=== PATIENT | male | born 1995 | race Caucasian/White ===

== ENCOUNTER 2016-12-25 23:50 | Emergency (ER) | payer BC ==
[~2016-12-25] VITALS: Ht 185.4 cm; Wt 60.1 kg
[~2016-12-25 23:50] MED LIST: APRI0.372 PO; BUDE3CAP5 PO; GROWTH HORMONE; LOMO PO; NEXI20CA PO; SULF-154 PO; TAB-TAB PO; ZOFR4TAB3 PO; ZOFR4TAB3 SL
[2016-12-25 23:58] VITALS: BP 107/80; PULSE 84; RESP 12; TEMP 97.8; O2SAT 100
[2016-12-26 00:20] VITALS: RESP 18; O2SAT 99
--- NOTE | 2016-12-26 00:29 | PD ---
HPI Chief Complaint: Fall Time Seen by Provider: 00:22 Travel History International Travel<30 days: No Contact w/Intl Traveler<30days: No Traveled to known affect area: No History of Present Illness HPI 21-year-old male presents to the emergency department by private transportation the care of his friend for evaluation of syncopal episode after smoking marijuana. Patient has history of Crohn's disease and takes humerus every 2 weeks otherwise takes no medications on a regular basis. Patient does smoke marijuana frequently and states he only purchases his marijuana from trusted individual. Patient states he had just finished smoking marijuana, began walking to his car across a flat concrete surface, and the next thing he recalls is waking up on the ground with everyone around him. Friend at bedside states that he just fell forward. Friend reports that he may have had some brief seizure-like activity however awakened without postictal state. No tongue trauma no bladder or bowel incontinence. Patient is able to get up off the ground on his own. Patient noted abrasions to the left forehead. Patient denies any headache neck pain chest pain abdominal pain extremity pain. Patient has no upper or lower extremity numbness tingling or weakness. Patient denies other substance ingestion. PFSH Past Medical History Narrative Medical Crohn's disease, no surgery; marijuana use; nursing notes reviewed Diminished Hearing: No Gastrointestinal Disorders: Yes (CROHN'S DISEASE) Immunizations Current: Yes Past Surgical History Tonsillectomy: Yes Tympanostomy Tube: Yes Social History Alcohol Use: No Tobacco Use: No Substance Use: No Allergies-Medications (Allergen,Severity, Reaction): Coded Allergies: No Known Allergies (Verified , 12/26/16) Reported Meds & Prescriptions Reported Meds & Active Scripts Active Zofran Odt (Ondansetron Odt) 4 Mg Tab 4 Mg SL Q6HR PRN Reported Humira 2-Pack Inj (Adalimumab 2-Pack Inj) 10 Mg/0.2 Ml Syr 10 Mg SQ Q14D Narrative Medication Humira Review of Systems Except as stated in HPI: all other systems reviewed are Neg General / Constitutional: No: Fever, Chills HENT: No: Headaches, Congestion, Neck Stiffness, Neck Pain Cardiovascular: No: Chest Pain or Discomfort Respiratory: No: Cough, Shortness of Breath Gastrointestinal: No: Nausea, Vomiting, Abdominal Pain Genitourinary: No: Flank Pain Musculoskeletal: No: Myalgias, Arthralgias Skin: Positive Rash (abrasion to left forehead) Neurologic: Positive: Syncope, No: Weakness, Dizziness, Focal Abnormalities, Coordination Problem, Headache, Change in Mentation, Slurred Speech, Paresthesia , Incontinence, Seizures, Sensory Disturbance Psychiatric: No: Anxiety Hematologic/Lymphatic: No: Easy Bruising Physical Exam Narrative GENERAL: Well-developed well-nourished male in no acute distress no respiratory distress; GCS 15 SKIN: Warm and dry. Superficial abrasion to the left forehead. HEAD: Atraumatic. Normocephalic. Scalp without palpable soft tissue swelling hematoma abrasion or laceration also no bony step-off EYES: Pupils equal and round. Extraocular muscles intact. No scleral icterus. No injection or drainage. ENT: No nasal bleeding or discharge. Mucous membranes pink and moist. Airway is patent. No hemotympanum bilaterally. NECK: Trachea midline. No JVD. No midline tenderness to direct palpation along the cervical spine no bony step-off. CARDIOVASCULAR: Regular rate and rhythm. Chest wall: Nontender to palpation. RESPIRATORY: No accessory muscle use. Clear to auscultation. Breath sounds equal bilaterally. GASTROINTESTINAL: Abdomen soft, non-tender, nondistended. Hepatic and splenic margins not palpable. MUSCULOSKELETAL: Extremities without clubbing, cyanosis, or edema. No obvious deformities. NEUROLOGICAL: Awake and alert. GCS 15. No obvious cranial nerve deficits. Motor grossly within normal limits. Five out of 5 muscle strength in the arms and legs. Normal speech. PSYCHIATRIC: Appropriate mood and affect; insight and judgment normal. Data Data Last Documented VS Vital Signs Date Time Temp Pulse Resp B/P Pulse Ox O2 Delivery O2 Flow Rate FiO2 12/26/16 02:39 84 18 110/78 99 12/26/16 00:20 Room Air 12/25/16 23:[address] Brain W/O Iv Contrast(Rout) (12/26/16 ) Electrocardiogram (12/26/16 ) Blood Glucose (12/26/16 00:22) Basic Metabolic Panel (Bmp) (12/26/16 00:55) Complete Blood Count With Diff (12/26/16 00:55) Magnesium (Mg) (12/26/16 00:55) Troponin I (12/26/16 00:55) Ecg Monitoring (12/26/16 00:55) Iv Access Insert/Monitor (12/26/16 00:55) Oximetry (12/26/16 00:55) Sodium Chloride 0.9% Flush (Ns Flush) (12/26/16 01:00) D-Dimer (12/26/16 00:55) Sodium Chlor 0.9% 1000 Ml Inj (Ns 1000 M (12/26/16 01:00) Labs Laboratory Tests Test 12/26/16 01:05 White Blood Count 12.0 TH/MM3 Red Blood Count 4.86 MIL/MM3 Hemoglobin 14.7 GM/DL Hematocrit 42.8 % Mean Corpuscular Volume 88.0 FL Mean Corpuscular Hemoglobin 30.3 PG Mean Corpuscular Hemoglobin 34.5 % Concent Red Cell Distribution Width 11.8 % Platelet Count 201 TH/MM3 Mean Platelet Volume 9.2 FL Neutrophils (%) (Auto) 81.3 % Lymphocytes (%) (Auto) 9.4 % Monocytes (%) (Auto) 8.4 % Eosinophils (%) (Auto) 0.5 % Basophils (%) (Auto) 0.4 % Neutrophils # (Auto) 9.8 TH/MM3 Lymphocytes # (Auto) 1.1 TH/MM3 Monocytes # (Auto) 1.0 TH/MM3 Eosinophils # (Auto) 0.1 TH/MM3 Basophils # (Auto) 0.0 TH/MM3 CBC Comment DIFF FINAL Differential Comment D-Dimer Quantitative (PE/DVT) 0.47 MG/L FEU Sodium Level 143 MEQ/L Potassium Level 3.6 MEQ/L Chloride Level 107 MEQ/L Carbon Dioxide Level 30.5 MEQ/L Anion Gap 6 MEQ/L Blood Urea Nitrogen 19 MG/DL Creatinine 1.00 MG/DL Estimat Glomerular Filtration 93 ML/MIN Rate Random Glucose 82 MG/DL Calcium Level 9.3 MG/DL Magnesium Level 2.4 MG/DL Troponin I LESS THAN 0.02 NG/ML MDM Medical Decision Making Medical Screen Exam Complete: Yes Emergency Medical Condition: Yes Medical Record Reviewed: Yes Differential Diagnosis Syncope, arrhythmia, electronic disturbance, polysubstance ingestion, seizure, TIA, ICH, CHI, contusion Narrative Course Bedside Accu-Chek 1:15; plan CT brain noncontrast basic labs EKG and urine drug screen Patient agreeable to CT brain noncontrast Accu-Chek and EKG patient refuses drug screen and does not want lab work performed. Diagnosis Primary Impression: Closed head injury Qualified Code: S09.90XA - Closed head injury, initial encounter Additional Impressions: History of marijuana use Concussion Qualified Code: S06.0X1A - Concussion, with LOC of 30 min or less, initial encounter Referrals: Primary Care Physician 3 days Patient Instructions: General Instructions Additional Instructions: Takes Zofran as needed for nausea and/or vomiting Increase fluid hydration Take acetaminophen/Tylenol as needed for fever 100.4F or greater Chief abrasion site clean and dry Follow-up with primary care provider call office on Wednesday to schedule follow- up appointment Return to the emergency department for any concerns or change in condition Follow head injury precautions 24 hours Med/Other Pt SpecificInfo: Prescription(s) given Scripts Ondansetron Odt (Zofran Odt)4 Mg Tab4 Mg SL Q6HR PRN (Nausea/Vomiting) #10 TAB Ref 0 Prov:Nilam Tompkins MD 12/26/16 Disposition: DISCHARGE HOME Condition: Stable Nilam Tompkins MD December 26, 2016 00:29
--- NOTE | 2016-12-26 00:47 | RADHPO ---
EXAM DATE/TIME: 12/26/2016 00:26 [facility] COMPARISON: No previous studies available for comparison. INDICATIONS : Syncopal episode. Contusion to forehead. RADIATION DOSE: 66.63 CTDIvol (mGy) MEDICAL HISTORY : None SURGICAL HISTORY : None. ENCOUNTER: Initial ACUITY: 1 day PAIN SCALE: 6/10 LOCATION: cranial TECHNIQUE: Multiple contiguous axial images were obtained of the head. Using automated exposure control and adj ustment of the mA and/or kV according to patient size, radiation dose was kept as low as reasonably a chievable to obtain optimal diagnostic quality images. FINDINGS: CEREBRUM: The ventricles are normal for age. No evidence of midline shift, mass lesion, hemorrhage or acute in farction. No extra-axial fluid collections are seen. POSTERIOR FOSSA: The cerebellum and brainstem are intact. The 4th ventricle is midline. The cerebellopontine angle i s unremarkable. EXTRACRANIAL: The visualized portion of the orbits is intact. SKULL: The calvaria is intact. No evidence of skull fracture. CONCLUSION: Normal examination. Jb Valdivia MD on December 26, 2016 at 0:46 Board Certified Radiologist. This report was verified electronically.
[2016-12-26] MEDS ORDERED: SODIUM CHLOR 0.9% 1000 ML INJ 1,000 ML IV ONE (01:00)
[2016-12-26] MEDS ORDERED: SODIUM CHLORIDE 0.9% FLUSH 10 ML FLUSH IVF PRN (01:00)
[2016-12-26 01:25] LABS: AUTOMATED NEUTROPHIL # 9.8 TH/MM3 (1.8-7.7); BASOPHIL % 0.4 % (0.0-2.0); CHLORIDE 107 MEQ/L (98-107); EOSINOPHIL # 0.1 TH/MM3 (0-0.4); EOSINOPHIL % 0.5 % (0.0-4.0); HEMATOCRIT 42.8 % (39.0-51.0); HEMO FLAGS DIFF FINAL; LYMPH % 9.4 % (9.0-44.0); LYMPHOCYTE # 1.1 TH/MM3 (1.0-4.8); MEAN CORPUSCULAR HEMOGLOBIN 30.3 PG (27.0-34.0); MEAN CORPUSCULAR HGB CONC 34.5 % (32.0-36.0); MONO % 8.4 % (0.0-8.0); NEUT % 81.3 % (16.0-70.0); PLATELET COUNT 201 TH/MM3 (150-450); POTASSIUM 3.6 MEQ/L (3.5-5.1); RED BLOOD COUNT 4.86 MIL/MM3 (4.50-5.90); RED CELL DISTRIBUTION WIDTH 11.8 % (11.6-17.2); SODIUM (NA) 143 MEQ/L (136-145)
[2016-12-26 01:28] LABS: ANION GAP 6 MEQ/L (5-15); BICARBONATE 30.5 MEQ/L (21.0-32.0); BLOOD UREA NITROGEN 19 MG/DL (7-18); MAGNESIUM 2.4 MG/DL (1.5-2.5)
[2016-12-26 01:33] LABS: GLOMERULAR FILTRATION RATE 93 ML/MIN (>89)
[2016-12-26] MEDS ORDERED: ADAL1INJ SQ (01:45)
[2016-12-26] MEDS ORDERED: ZOFR4TAB3 SL (02:28)
[2016-12-26 02:39] VITALS: BP 110/78
--- NOTE | 2016-12-26 16:11 | EKG ---
Date Performed: 12/26/2016 Time Performed: 00:48:30 PTAGE: 21 years EKG: Incomplete Right Bundle Branch Block Otherwise within normal limits Since PREVIOUS TRACING 06/22/2006, incomplete right bundle branch block is new, otherwise no s ignificant change. PREVIOUS TRACIN06/22/2006 14.40 DOCTOR: Byron Shipley Interpretating Date/Time 12/26/2016 16:10:36
== END 2016-12-26 02:40 | disposition home or self-care (01) ==
LOC: PHED 23:50
DX: S06.0X0A Concussion without loss of consciousness, initial encounter (principal); F12.10 Cannabis abuse, uncomplicated; R21 Rash and other nonspecific skin eruption; K50.90 Crohn's disease, unspecified, without complications; W18.30XA Fall on same level, unspecified, initial encounter
CPT/HCPCS: 70450; 80048; 83735; 84484; 85025; 85379; 93005; 96360; 99285; J7030

== ENCOUNTER 2017-02-12 19:03 | Observation (INO) | payer BC ==
[~2017-02-12] VITALS: Ht 185.4 cm; Wt 59.8 kg
[~2017-02-12 19:03] MED LIST changes: +ADAL1INJ SQ; -APRI0.372 PO; -BUDE3CAP5 PO; -GROWTH HORMONE; -LOMO PO; -NEXI20CA PO; -SULF-154 PO; -TAB-TAB PO; -ZOFR4TAB3 PO
[2017-02-12 19:32] VITALS: BP 99/74; PULSE 86; RESP 18; TEMP 98.2; O2SAT 99
[2017-02-12 19:50] VITALS: BP_SYST 111; BP_SYST 114; BP_SYST 131; BP_DIAS 70; BP_DIAS 75; BP_DIAS 77; RESP 16
[2017-02-12 19:52] VITALS: BP 111/70; PULSE 86; RESP 16; O2SAT 100
[2017-02-12] MEDS ORDERED: SODIUM CHLOR 0.9% 1000 ML INJ 1,000 ML IV ONE (20:25)
[2017-02-12] MEDS ORDERED: SODIUM CHLORIDE 0.9% FLUSH 10 ML FLUSH IVF PRN ×2 (20:30→22:00)
--- NOTE | 2017-02-12 20:40 | PD ---
HPI Chief Complaint: Syncope/Near-Syncope Time Seen by Provider: 20:25 Travel History International Travel<30 days: No Contact w/Intl Traveler<30days: No Traveled to known affect area: No History of Present Illness HPI 21-year-old male presents to the emergency department by private transportation for evaluation of near syncopal episode just prior to arrival to the emergency department. 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 Patient states he was able to get to the cooler at his place of business and sent and a cool environment and while talking on the phone with his mother he states he felt briefly he had some near loss of consciousness but does not recall being completely unconscious and did not fall to the floor sustaining any injury. Patient states this is the second episode in a one-month timeframe of a syncopal episode with rapid heartbeat; and reports this is the third episode in 6 months of a syncopal episode. Patient states that he has been seen in the emergency department for this the last time She fell and hit his head and had a concussion and had been smoking marijuana just prior to that episode. Patient denies any substance use at this time states his only medication is humerus for history of Crohn's disease. Patient's been having no abdominal pain no bloody stool no vomiting no fever or chills and denies any symptoms at this time. Patient denies any family history of rhythm disturbance early onset cardiac disease or sudden except for his maternal grandfather who has some type of heart rhythm disturbance and has developed within the past few years. Mother and father are both in good health as are his siblings. Patient did not follow-up with his primary care provider after being seen in the emergency department as he felt everything had been evaluated at that time and did not know he was supposed to follow-up as an outpatient. Patient denies any other concerns or complaints. Patient is unable to identify exacerbating or alleviating factors. PFSH Past Medical History Narrative Medical Crohn's disease, tonsillectomy tympanostomy; denies substance use alcohol use or tobacco use; family history maternal grandfather question rhythm disturbance ; nursing notes reviewed Diminished Hearing: No Gastrointestinal Disorders: Yes (CROHN'S DISEASE) Immunizations Current: Yes Past Surgical History Tonsillectomy: Yes Tympanostomy Tube: Yes Social History Alcohol Use: No Tobacco Use: No Substance Use: No Allergies-Medications (Allergen,Severity, Reaction): Coded Allergies: No Known Allergies (Verified , 02/12/17) Reported Meds & Prescriptions Reported Meds & Active Scripts Active Reported Humira 2-Pack Inj (Adalimumab 2-Pack Inj) 10 Mg/0.2 Ml Syr 10 Mg SQ Q14D Review of Systems Except as stated in HPI: all other systems reviewed are Neg General / Constitutional: No: Fever, Chills Eyes: No: Visual changes HENT: Positive: Lightheadedness, No: Headaches, Vertigo, Congestion, Nosebleed , Neck Pain Cardiovascular: Positive: Palpitations, Tachycardia, Diaphoresis, Syncope ( near syncope), No: Chest Pain or Discomfort, Dyspnea on exertion, Varicosities , Edema Respiratory: No: Cough, Shortness of Breath, Wheezing, Hemoptysis, Pleuritic Pain Gastrointestinal: Positive: Nausea, No: Vomiting, Diarrhea, Abdominal Pain, Hematemesis, Hematochezia, Changes in Bowel Habits Genitourinary: No: Urgency, Frequency, Dysuria, Flank Pain Musculoskeletal: No: Myalgias, Arthralgias Skin: No Rash Neurologic: Positive: Weakness, Dizziness, Syncope (near), No: Focal Abnormalities, Coordination Problem, Ataxia, Headache, Change in Mentation, Slurred Speech, Incontinence, Seizures, Sensory Disturbance Psychiatric: No: Anxiety Endocrine: No: Heat Intolerance Hematologic/Lymphatic: No: Easy Bruising Physical Exam Narrative GENERAL: Well-developed well-nourished male in no acute distress no respiratory distress; GCS 15 SKIN: Warm and dry. HEAD: Atraumatic. Normocephalic. EYES: Pupils equal and round. Extraocular muscles intact No scleral icterus. No injection or drainage. ENT: No nasal bleeding or discharge. Mucous membranes pink and moist. Airway is patent. NECK: Trachea midline. No JVD. Supple no meningismus no nuchal rigidity no thyromegaly. CARDIOVASCULAR: Regular rate and rhythm. No murmur rub or gallop. RESPIRATORY: No accessory muscle use. Clear to auscultation. Breath sounds equal bilaterally. GASTROINTESTINAL: Abdomen soft, non-tender, nondistended. Hepatic and splenic margins not palpable. MUSCULOSKELETAL: Extremities without clubbing, cyanosis, or edema. No obvious deformities. NEUROLOGICAL: Awake and alert. No obvious cranial nerve deficits. Motor grossly within normal limits. Five out of 5 muscle strength in the arms and legs. No limb ataxia. DTRs 2+ and symmetric bilaterally. No pronator drift. Sensory exam intact. Normal speech. PSYCHIATRIC: Appropriate mood and affect; insight and judgment normal. Data Data Last Documented VS Vital Signs Date Time Temp Pulse Resp B/P Pulse Ox O2 Delivery O2 Flow Rate FiO2 02/12/17 21:52 85 16 112/72 99 Room Air 02/12/17 19:32 98.2 Orders Electrocardiogram (02/12/17 20:25) Complete Blood Count With Diff (02/12/17 20:25) Comprehensive Metabolic Panel (02/12/17 20:25) Magnesium (Mg) (02/12/17 20:25) Ckmb (Isoenzyme) Profile (02/12/17 20:25) Troponin I (02/12/17 20:25) Act Partial Throm Time (Ptt) (02/12/17 20:25) Prothrombin Time / Inr (Pt) (02/12/17 20:25) Urinalysis - C+S If Indicated (02/12/17 20:25) Chest, Single Ap (02/12/17 20:25) Ecg Monitoring (02/12/17 20:25) Iv Access Insert/Monitor (02/12/17 20:25) Oximetry (02/12/17 20:25) Sodium Chloride 0.9% Flush (Ns Flush) (02/12/17 20:30) Sodium Chlor 0.9% 1000 Ml Inj (Ns 1000 M (02/12/17 20:25) Orthostatic Vital Signs (02/12/17 20:25) D-Dimer (02/12/17 20:25) Thyroid Stimulating Hormone (02/12/17 20:25) Drug Screen, Random Urine (02/12/17 20:25) CKMB (02/12/17 20:45) CKMB% (02/12/17 20:45) Admit Order (Ed Use Only) (02/12/17 ) ^ Saline Lock (02/12/17 21:54) Resp Oxygen Joshua C Titrat 1-4 L (02/12/17 ) Notify Dr: Other (02/12/17 21:54) Sodium Chloride 0.9% Flush (Ns Flush) (02/13/17 09:00) Sodium Chloride 0.9% Flush (Ns Flush) (02/12/17 22:00) Labs Laboratory Tests Test 02/12/17 02/12/17 20:40 20:45 Urine Opiates Screen NEG Urine Barbiturates Screen NEG Urine Amphetamines Screen NEG Urine Benzodiazepines Screen NEG Urine Cocaine Screen NEG Urine Cannabinoids Screen NEG White Blood Count 8.8 TH/MM3 Red Blood Count 4.86 MIL/MM3 Hemoglobin 14.8 GM/DL Hematocrit 42.5 % Mean Corpuscular Volume 87.4 FL Mean Corpuscular Hemoglobin 30.5 PG Mean Corpuscular Hemoglobin 35.0 % Concent Red Cell Distribution Width 11.6 % Platelet Count 176 TH/MM3 Mean Platelet Volume 9.0 FL Neutrophils (%) (Auto) 68.4 % Lymphocytes (%) (Auto) 21.7 % Monocytes (%) (Auto) 8.5 % Eosinophils (%) (Auto) 0.7 % Basophils (%) (Auto) 0.7 % Neutrophils # (Auto) 6.0 TH/MM3 Lymphocytes # (Auto) 1.9 TH/MM3 Monocytes # (Auto) 0.7 TH/MM3 Eosinophils # (Auto) 0.1 TH/MM3 Basophils # (Auto) 0.1 TH/MM3 CBC Comment DIFF FINAL Differential Comment Prothrombin Time 11.8 SEC Prothromb Time International 1.1 RATIO Ratio Activated Partial 28.5 SEC Thromboplast Time D-Dimer Quantitative (PE/DVT) 0.19 MG/L FEU Urine Color YELLOW Urine Turbidity SLIGHT Urine pH 6.5 Urine Specific [place] 1.026 Urine Protein NEG mg/dL Urine Glucose (UA) NEG mg/dL Urine Ketones NEG mg/dL Urine Occult Blood NEG Urine Nitrite NEG Urine Bilirubin NEG Urine Leukocyte Esterase NEG Urine RBC 0-2 /hpf Urine WBC 0-2 /hpf Urine Squamous Epithelial 0-5 /hpf Cells Urine Amorphous Sediment MOD Urine Bacteria NONE /hpf Microscopic Urinalysis Comment CULT NOT INDICATED Sodium Level 141 MEQ/L Potassium Level 3.7 MEQ/L Chloride Level 105 MEQ/L Carbon Dioxide Level 30.1 MEQ/L Anion Gap 6 MEQ/L Blood Urea Nitrogen 18 MG/DL Creatinine 0.90 MG/DL Estimat Glomerular Filtration 106 ML/MIN Rate Random Glucose 92 MG/DL Calcium Level 9.5 MG/DL Magnesium Level 2.3 MG/DL Total Bilirubin 1.0 MG/DL Aspartate Amino Transf 16 U/L (AST/SGOT) Alanine Aminotransferase 18 U/L (ALT/SGPT) Alkaline Phosphatase 87 U/L Total Creatine Kinase 128 U/L Creatine Kinase MB 1.1 NG/ML Troponin I 0.02 NG/ML Total Protein 7.5 GM/DL Albumin 4.4 GM/DL Thyroid Stimulating Hormone 0.488 uIU/ML 3rd Gen [facility] Medical Decision Making Medical Screen Exam Complete: Yes Emergency Medical Condition: Yes Medical Record Reviewed: Yes Interpretation(s) EKG normal sinus rhythm rate 76) ventricular conduction delay incomplete right bundle branch block prominent T waves and ST segment elevation or injury pattern change no ectopy noted Last Impressions Chest X-Ray 02/12/172024 Signed Impressions: Service Date/Time: Sunday, February 12, 2017 20:48 - CONCLUSION: No evidence of acute cardiopulmonary disease. Kulwinder Cheung MD CBC & BMP Diagram 02/12/17 20:45 trop I: less than 0.02, not elevated uds: negative tsh: 0.488, wnl Differential Diagnosis Syncope, arrhythmia, electrolyte disturbance, anemia, seizure, TIA, PE, substance ingestion Narrative Course Lab values are found to be in normal range; no evidence for electrolyte disturbance or hyper or hypokalemia; TSH be in normal limits; urine drug screen negative; no evidence for anemia; d-dimer is not elevated at 0.19; patient with mild orthostatic measurements changes however asymptomatic; patient has been given fluid bolus. Patient does not have primary care provider at this time but is followed by fiber technician. Clinically patient feels improved at this time; however 3rd episode of syncope/near syncope without outpatient provider to follow up holter monitor or benefit of eeg echo and monitoring. Discussed with Nayana HWANG -- will admit to OBS Physician Communication Physician Communication discussed with Dr Lane --obs Diagnosis Primary Impression: Near syncope Additional Impression: Syncope Admitting Information Admitting Physician Requests: Observation Nilam Tompkins MD Feb 12, 2017 20:40 Syncope Admitting Information Admitting Physician Requests: Observation Nilam Tompkins MD Feb 12, 2017 20:40
--- NOTE | 2017-02-12 20:54 | RADRPT ---
EXAM DATE/TIME: 02/12/2017 20:48 [facility] COMPARISON: CHEST SINGLE AP, July 11, 2016, 19:52. INDICATIONS : Syncope and palpitations. MEDICAL HISTORY : None. SURGICAL HISTORY : None. ENCOUNTER: Initial ACUITY: 1 day PAIN SCORE: 0/10 LOCATION: Bilateral chest FINDINGS: A single view of the chest demonstrates the lungs to be symmetrically aerated without evidence of mas s, infiltrate or effusion. The cardiomediastinal contours are unremarkable. Osseous structures are intact. CONCLUSION: No evidence of acute cardiopulmonary disease. Kulwinder Cheung MD on February 12, 2017 at 20:52 Board Certified Radiologist. This report was verified electronically.
[2017-02-12 20:57] LABS: BLOOD, URINE NEG (NEG); GLUCOSE,URINE NEG (NEG); KETONE, URINE NEG (NEG); NITRITE,URINE NEG (NEG); PH, URINE 6.5 (5.0-8.5)
[2017-02-12 20:58] LABS: BASOPHIL # 0.1 TH/MM3 (0-0.2); BASOPHIL % 0.7 % (0.0-2.0); EOSINOPHIL # 0.1 TH/MM3 (0-0.4); EOSINOPHIL % 0.7 % (0.0-4.0); HEMATOCRIT 42.5 % (39.0-51.0); HEMO FLAGS DIFF FINAL; LYMPH % 21.7 % (9.0-44.0); LYMPHOCYTE # 1.9 TH/MM3 (1.0-4.8); MEAN CELL VOLUME 87.4 FL (80.0-100.0); MEAN CORPUSCULAR HEMOGLOBIN 30.5 PG (27.0-34.0); MONO % 8.5 % (0.0-8.0); NEUT % 68.4 % (16.0-70.0); PLATELET COUNT 176 TH/MM3 (150-450); RED BLOOD COUNT 4.86 MIL/MM3 (4.50-5.90); RED CELL DISTRIBUTION WIDTH 11.6 % (11.6-17.2); URINE COLOR YELLOW (YELLW/STRAW); WHITE BLOOD COUNT 8.8 TH/MM3 (4.0-11.0)
[2017-02-12 21:01] LABS: RBC, URINE 0-2 /hpf (0-3); SQUAMOUS EPITHELIAL CELL URINE 0-5 /hpf (0-5); WBC, URINE 0-2 /hpf (0-5)
[2017-02-12 21:02] LABS: COMMENT (UR) CULT NOT INDICATED; CULTURE IF INDICATED CULT NOT INDICATED
[2017-02-12 21:05] LABS: CHLORIDE 105 MEQ/L (98-107); POTASSIUM 3.7 MEQ/L (3.5-5.1); SODIUM (NA) 141 MEQ/L (136-145)
[2017-02-12 21:07] LABS: AMPHETAMINE, URINE NEG (NEG); BARBITURATES, URINE NEG (NEG); COCAINE, URINE NEG (NEG)
[2017-02-12 21:09] LABS: ANION GAP 6 MEQ/L (5-15); BICARBONATE 30.1 MEQ/L (21.0-32.0); BLOOD UREA NITROGEN 18 MG/DL (7-18); MAGNESIUM 2.3 MG/DL (1.5-2.5)
[2017-02-12 21:12] LABS: ALT (GPT) 18 U/L (12-78); AST (GOT) 16 U/L (15-37); GLOMERULAR FILTRATION RATE 106 ML/MIN (>89)
[2017-02-12 21:13] LABS: APTT (PATIENT) 28.5 SEC (24.3-30.1); INTERNATIONAL NORMALIZED RATIO 1.1 RATIO; PROTHROMBIN TIME - PATIENT 11.8 SEC (9.8-11.6)
[2017-02-12 21:15] LABS: ALKALINE PHOSPHATASE 87 U/L (45-117); CREATINE KINASE 128 U/L (39-308)
[2017-02-12 21:27] LABS: CKMB 1.1 NG/ML (0.5-3.6)
[2017-02-12 21:52] VITALS: BP 112/72; PULSE 85; RESP 16; O2SAT 99
[2017-02-12] MEDS ORDERED: MAGNESIUM HYDROXIDE SUSP 30 ML CUP PO PRN (22:00)
[2017-02-12] MEDS ORDERED: BISACODYL 10 MG SUPP RECTAL PRN (22:00)
[2017-02-12] MEDS ORDERED: ACETAMINOPHEN 325 MG TAB PO PRN (22:00)
[2017-02-12] MEDS ORDERED: ACETAMINOPHEN/HYDROcodone 325 MG/10 MG TAB PO PRN (22:00)
[2017-02-12] MEDS ORDERED: LACTULOSE SYRUP 20 GM/30 ML CUP PO PRN (22:00)
[2017-02-12] MEDS ORDERED: SENNOSIDES 8.6 MG TAB PO PRN (22:00)
[2017-02-12] MEDS ORDERED: SODIUM CHLORIDE 0.9% FLUSH 10 ML FLUSH IV FLUSH PRN (22:00)
[2017-02-12] MEDS ORDERED: ACETAMINOPHEN/HYDROcodone 325 MG/5 MG TAB PO PRN (22:00)
[2017-02-12] MEDS ORDERED: ONDANSETRON HCL 4 MG/2 ML VIAL IVP PRN (22:00)
[2017-02-12 22:15] VITALS: O2SAT 99
[2017-02-12] MEDS: SODIUM CHLOR 0.9% 1000 ML INJ 1,000 ML IV SCH (22:42)
[2017-02-13] VITALS: BP 111/72; PULSE 72; RESP 18; TEMP 96.1; O2SAT 99
[2017-02-13 04:00] VITALS: BP 110/70; PULSE 70; RESP 16; TEMP 97.3; O2SAT 99
[2017-02-13 07:16] VITALS: O2SAT 99
[2017-02-13] MEDS: SODIUM CHLOR 0.9% 1000 ML INJ 1,000 ML IV SCH (07:59)
[2017-02-13 08:00] VITALS: BP 100/69; PULSE 81; RESP 20; TEMP 96.2; O2SAT 98
[2017-02-13] MEDS ORDERED: SODIUM CHLORIDE 0.9% FLUSH 10 ML FLUSH IV FLUSH SCH ×2 (09:00)
[2017-02-13] MEDS ORDERED: DOCUSATE SODIUM 50 MG/SENNA 8.6 MG TAB PO SCH (09:00)
[2017-02-13 09:50] LABS: AUTOMATED NEUTROPHIL # 3.5 TH/MM3 (1.8-7.7); BASOPHIL % 0.3 % (0.0-2.0); EOSINOPHIL # 0.1 TH/MM3 (0-0.4); EOSINOPHIL % 1.3 % (0.0-4.0); HEMATOCRIT 43.3 % (39.0-51.0); HEMO FLAGS DIFF FINAL; LYMPH % 27.9 % (9.0-44.0); LYMPHOCYTE # 1.7 TH/MM3 (1.0-4.8); MEAN CELL VOLUME 88.1 FL (80.0-100.0); MEAN CORPUSCULAR HEMOGLOBIN 30.7 PG (27.0-34.0); MEAN CORPUSCULAR HGB CONC 34.8 % (32.0-36.0); MONO % 10.3 % (0.0-8.0); NEUT % 60.2 % (16.0-70.0); PLATELET COUNT 165 TH/MM3 (150-450); RED BLOOD COUNT 4.92 MIL/MM3 (4.50-5.90); RED CELL DISTRIBUTION WIDTH 11.8 % (11.6-17.2); WHITE BLOOD COUNT 5.9 TH/MM3 (4.0-11.0)
[2017-02-13 10:02] LABS: CHLORIDE 105 MEQ/L (98-107); POTASSIUM 3.9 MEQ/L (3.5-5.1); SODIUM (NA) 141 MEQ/L (136-145)
[2017-02-13 10:05] LABS: ANION GAP 7 MEQ/L (5-15); BICARBONATE 28.7 MEQ/L (21.0-32.0); BLOOD UREA NITROGEN 17 MG/DL (7-18)
[2017-02-13 10:08] LABS: ALT (GPT) 18 U/L (12-78); AST (GOT) 18 U/L (15-37)
[2017-02-13 10:09] LABS: GLOMERULAR FILTRATION RATE 111 ML/MIN (>89)
[2017-02-13 10:10] LABS: TOTAL BILIRUBIN ADULT 1.8 MG/DL (0.2-1.0)
[2017-02-13 10:11] LABS: ALKALINE PHOSPHATASE 81 U/L (45-117)
[2017-02-13 12:00] VITALS: BP 95/60; PULSE 66; RESP 20; TEMP 95.9; O2SAT 100
--- NOTE | 2017-02-13 13:01 | HHI.DCPOC ---
Discharge Care Plan Diagnosis: (1) Near syncope Goals to Promote Your Health * To prevent worsening of your condition and complications * To maintain your health at the optimal level Directions to Meet Your Goals Take your medications as prescribed Follow your dietary instruction Follow activity as directed Keep your appointments as scheduled Take your immunizations and boosters as scheduled If your symptoms worsen call your PCP, if no PCP go to Urgent Care Center or Emergency Room Smoking is Dangerous to Your Health. Avoid second hand smoke Call the 24-hour hour crisis hotline for domestic abuse at Maya Vasquez MD Feb 13, 2017 13:01
--- NOTE | 2017-02-13 13:09 | HHI.HP ---
[facility] Primary Care Physician No Primary Care Physician Admission Diagnosis near syncope/syncope Diagnoses: Chief Complaint: Near syncopal episode Travel History International Travel<30 Days: No Contact w/Intl Traveler <30 Da: No Traveled to Known Affected Are: No History of Present Illness Patient is a 21-year-old gentleman with a history of Crohn's disease who came to the hospital with the third episode of almost passing out. Patient was at work and felt dizzy so he sat down and called his mom. He did come to the emergency room via private transportation and was evaluated in the emergency room without any acute findings. The patient had a previous evaluation done in November and had negative CT scan negative electrolyte issues and no events of arrhythmia on telemetry while in the emergency room per documentation. Patient was expected to follow-up with his primary care physician however did not go in felt everything was fine. Patient has a monitored on telemetry without evidence of arrhythmia again at this time. Echocardiogram has been done and the results are available in the medical record. The patient's electrolytes and hematology studies are within normal limits. Did have some evidence of hypotension which improved with IV hydration. The Patient says he is not drinking fluids and is working overtime and both school and work. Episodes have been witnessed and there is no evidence of seizures. Review of Systems Constitutional: DENIES: Diaphoretic episodes, Fatigue, Fever, Weight gain, Weight loss, Chills, Dizziness, Change in appetite, Night Sweats Endocrine: DENIES: Heat/cold intolerance, Polydipsia, Polyuria, Polyphagia Eyes: DENIES: Blurred vision, Diplopia, Eye inflammation, Eye pain, Vision loss , Photosensitivity, Double Vision Ears, nose, mouth, throat: DENIES: Tinnitus, Hearing loss, Vertigo, Nasal discharge, Oral lesions, Throat pain, Hoarseness, Ear Pain, Running Nose, Epistaxis, Sinus Pain, Toothache, Odynophagia Respiratory: DENIES: Apneas, Cough, Snoring, Wheezing, Hemoptysis, Sputum production, Shortness of breath Cardiovascular: COMPLAINS OF: Syncope, DENIES: Chest pain, Palpitations, Dyspnea on Exertion, PND, Lower Extremity Edema, Orthopnea, Claudication Gastrointestinal: DENIES: Abdominal pain, Black stools, Bloody stools, Constipation, Diarrhea, Nausea, Vomiting, Difficulty Swallowing, Anorexia Genitourinary: DENIES: Sexual dysfunction, Urinary frequency, Urinary incontinence, Urgency, Hematuria, Dysuria, Nocturia, Penile Discharge, Testicular Pain, Testicular Swelling Musculoskeletal: DENIES: Joint pain, Muscle aches, Stiffness, Joint Swelling, Back pain, Neck pain Integumentary: DENIES: Abnormal pigmentation, Nail changes, Pruritus, Rash Hematologic/lymphatic: DENIES: Bruising, Lymphadenopathy Psychiatric: DENIES: Anxiety, Confusion, Mood changes, Depression, Hallucinations, Agitation, Suicidal Ideation, Homicidal Ideation, Delusions Past Family Social History Past Medical History Crohn's disease Past Surgical History Tonsillectomy Tympanic surgery Reported Medications Reviewed in the medical record, no new medications Allergies: Coded Allergies: No Known Allergies (Verified , 02/12/17) Active Ordered Medications Reviewed in the medical record Family History No family history of Crohn's, no family history of sudden cardiac Social History No tobacco or alcohol dependency, employed and in school, occasional marijuana Physical Exam Vital Signs Vital Signs Date Time Temp Pulse Resp B/P Pulse Ox O2 Delivery O2 Flow Rate FiO2 02/13/17 12:00 95.9 66 20 95/60 100 02/13/17 08:00 96.2 81 20 100/69 98 02/13/17 07:16 99 21 02/13/17 04:00 97.3 70 16 110/70 99 02/13/17 00:00 96.1 72 18 111/72 99 02/12/17 22:15 99 21 02/12/17 21:52 85 16 112/72 99 Room Air 02/12/17 19:52 86 16 99 Room Air 02/12/17 19:52 86 16 111/70 100 Room Air 02/12/17 19:50 86 16 111/70 78 16 114/75 92 131/77 02/12/17 19:32 98.2 86 18 99/74 99 Physical Exam GENERAL: This is a well-nourished, well-developed patient, in no apparent distress. SKIN: No rashes, ecchymoses or lesions. Cool and dry. HEAD: Atraumatic. Normocephalic. No temporal or scalp tenderness. EYES: Pupils equal round and reactive. Extraocular motions intact. No scleral icterus. No injection or drainage. ENT: Nose without bleeding, purulent drainage or septal hematoma. Throat without erythema, tonsillar hypertrophy or exudate. Uvula midline. Airway patent. NECK: Trachea midline. No JVD or lymphadenopathy. Supple, nontender, no meningeal signs. CARDIOVASCULAR: Regular rate and rhythm without murmurs, gallops, or rubs. RESPIRATORY: Clear to auscultation. Breath sounds equal bilaterally. No wheezes , rales, or rhonchi. GASTROINTESTINAL: Abdomen soft, non-tender, nondistended. No hepato-splenomegaly , or palpable masses. No guarding. MUSCULOSKELETAL: Extremities without clubbing, cyanosis, or edema. No joint tenderness, effusion, or edema noted. No calf tenderness. Negative Homans sign bilaterally. NEUROLOGICAL: Awake and alert. Cranial nerves II through XII intact. Motor and sensory grossly within normal limits. Five out of 5 muscle strength in all muscle groups. Normal speech. Laboratory Laboratory Tests Test 02/12/17 02/12/17 02/13/17 02/13/17 20:40 20:45 03:45 09:24 Urine Opiates Screen NEG Urine Barbiturates Screen NEG Urine Amphetamines Screen NEG Urine Benzodiazepines Screen NEG Urine Cocaine Screen NEG Urine Cannabinoids Screen NEG White Blood Count 8.8 5.9 Red Blood Count 4.86 4.92 Hemoglobin 14.8 15.1 Hematocrit 42.5 43.3 Mean Corpuscular Volume 87.4 88.1 Mean Corpuscular Hemoglobin 30.5 30.7 Mean Corpuscular Hemoglobin 35.0 34.8 Concent Red Cell Distribution Width 11.6 11.8 Platelet Count 176 165 Mean Platelet Volume 9.0 9.0 Neutrophils (%) (Auto) 68.4 60.2 Lymphocytes (%) (Auto) 21.7 27.9 Monocytes (%) (Auto) 8.5 10.3 Eosinophils (%) (Auto) 0.7 1.3 Basophils (%) (Auto) 0.7 0.3 Neutrophils # (Auto) 6.0 3.5 Lymphocytes # (Auto) 1.9 1.7 Monocytes # (Auto) 0.7 0.6 Eosinophils # (Auto) 0.1 0.1 Basophils # (Auto) 0.1 0.0 CBC Comment DIFF FINAL DIFF FINAL Differential Comment Prothrombin Time 11.8 Prothromb Time International 1.1 Ratio Activated Partial 28.5 Thromboplast Time D-Dimer Quantitative (PE/DVT) 0.19 Urine Color YELLOW Urine Turbidity SLIGHT Urine pH 6.5 Urine Specific [place] 1.026 Urine Protein NEG Urine Glucose (UA) NEG Urine Ketones NEG Urine Occult Blood NEG Urine Nitrite NEG Urine Bilirubin NEG Urine Leukocyte Esterase NEG Urine RBC 0-2 Urine WBC 0-2 Urine Squamous Epithelial 0-5 Cells Urine Amorphous Sediment MOD Urine Bacteria NONE Microscopic Urinalysis Comment CULT NOT INDICATED Sodium Level 141 141 Potassium Level 3.7 3.9 Chloride Level 105 105 Carbon Dioxide Level 30.1 28.7 Anion Gap 6 7 Blood Urea Nitrogen 18 17 Creatinine 0.90 0.86 Estimat Glomerular Filtration 106 111 Rate Random Glucose 92 87 Calcium Level 9.5 9.1 Magnesium Level 2.3 Total Bilirubin 1.0 1.8 Aspartate Amino Transf 16 18 (AST/SGOT) Alanine Aminotransferase 18 18 (ALT/SGPT) Alkaline Phosphatase 87 81 Total Creatine Kinase 128 Creatine Kinase MB 1.1 Troponin I 0.02 LESS THAN 0.02 LESS THAN 0.02 Total Protein 7.5 7.3 Albumin 4.4 4.2 Thyroid Stimulating Hormone 0.488 3rd Gen Result Diagram: 02/13/17 0924 02/13/[address] the head done 11/2016: Within normal limits, reviewed by me Assessment and Plan Problem List: (1) Near syncope ICD Code: R55 Status: Acute Plan: Resolved. No evidence of arrhythmia on telemetry Patient without further complaints. We'll follow up echocardiogram and refer patient to primary care physician No evidence of seizure Assessment and Plan Near syncopal episode without evidence of cardiac or neurological component. Patient instructed to continue follow-up plans with primary care physician and drink fluids appropriately Code Status Full code Discussed Condition With Patient, significant other, nursing Maya Vasquez MD Feb 13, 2017 13:09
--- NOTE | 2017-02-13 13:51 | EKG ---
Date Performed: 02/12/2017 Time Performed: 20:33:26 PTAGE: 21 years EKG: Sinus rhythm POSSIBLE RIGHT VENTRICULAR CONDUCTION DELAY MODERATE ST DEPRESSION TALL T-WAVES, SUGGESTS HYPERKALEM IA Compared to previous tracing, T waves are slightly taller ABNORMAL ECG PREVIOUS TRACING : 12/26/2016 00.48 DOCTOR: Naseem Duran Interpretating Date/Time 02/13/2017 13:49:48
--- NOTE | 2017-02-13 15:23 | ECHRPT ---
Indication: R/O CARDIOMYOPATHY CONCLUSIONS Normal left ventricular size. Wall thickness is normal. The left ventricular systolic function is grossly normal on limited imaging. LVEF 60% No regional wall motion abnormalities are present. Left ventricular diastolic function parameters are normal. Normal right ventricular size and systolic function. BP: 100 / 69 HR: 81 Rhythm: Sinus MEASUREMENTS (Male / Female) Normal Values Technical Quality:Fair 2D ECHO LVOT Diameter 2.1 cm Aortic Root Diameter 3.0 cm M-MODE LV Diastolic Diameter MM 5.3 cm 4.2 - 5.9 / 3.9 - 5.3 cm LV Systolic Diameter MM 3.1 cm LV Ejection Fraction MM Teich 70.4 % LV Cardiac Index MM Teich 4380.6 cm/minm IVS Diastolic Thickness MM 0.6 cm 0.6 - 1.0 / 0.6 - 0.9 cm LVPW Diastolic Thickness MM 0.6 cm 0.6 - 1.0 / 0.6 - 0.9 cm LV Relative Wall Thickness MM 0.2 0.24 - 0.42 / 0.22 - 0.42 LV Mass Index MM 58.2 g/m 49 - 115 / 43 - 95 g/m RV Diastolic Diameter MM 1.9 cm AV Cusp Separation MM 2.3 cm DOPPLER AV Peak Velocity 94.0 cm/s AV Peak Gradient 3.5 mmHg AV Mean Gradient 2.0 mmHg AV Velocity Time Integral 20.1 cm LVOT Peak Velocity 67.0 cm/s LVOT Peak Gradient 1.8 mmHg LVOT Velocity Time Integral 12.7 cm LVOT Cardiac Index 2059.3 cm/minm AV Area Cont Eq vti 2.2 cm AV Area Cont Eq pk 2.5 cm Mitral E Point Velocity 61.7 cm/s Mitral A Point Velocity 48.6 cm/s Mitral E to A Ratio 1.3 LV E' Lateral Velocity 15.0 cm/s Mitral E to LV E' Lateral Ratio 4.1 LV E' Septal Velocity 13.1 cm/s Mitral E to LV E' Septal Ratio 4.7 TR Peak Velocity 230.0 cm/s TR Peak Gradient 21.2 mmHg PV Peak Velocity 45.2 cm/s PV Peak Gradient 0.8 mmHg FINDINGS LEFT VENTRICLE Normal left ventricular size. Wall thickness is normal. The left ventricular systolic function is grossly normal on limited imaging. The left ventricular sy stolic function is normal with an estimated ejection fraction in the range of 55-60%. No regional wall motion abnormalities are present. Left ventricular diastolic function parameters are normal. RIGHT VENTRICLE Normal right ventricular size and systolic function. PULMONARY VALVE Trivial pulmonary valve regurgitation. Naseem Duran MD (Electronically Signed) Final Date:13 February 2017 15:22
== END 2017-02-13 14:40 | disposition home or self-care (01) ==
LOC: PHED 19:03 → PHEDA 21:55 → PH3B 23:41
PROVIDERS: ADMIT Hospitalist; ATTEND Hospitalist
DX: R55 Syncope and collapse (principal); R42 Dizziness and giddiness; R00.2 Palpitations; I95.9 Hypotension, unspecified; R94.31 Abnormal electrocardiogram [ECG] [EKG]; K50.90 Crohn's disease, unspecified, without complications; F12.90 Cannabis use, unspecified, uncomplicated
CPT/HCPCS: 71010; 80053; 80307; 81001; 82550; 82552; 83735; 84443; 84484; 85025; 85379; 85610; 85730; 93005; 93306; 96360; 99285; G0378; J7030

== ENCOUNTER 2017-06-14 11:40 | Day surgery (SDC) | payer BC ==
[~2017-06-14] VITALS: Ht 185.4 cm; Wt 69.6 kg
[~2017-06-14 11:40] MED LIST changes: -ZOFR4TAB3 SL
[2017-06-14] MEDS ORDERED: PROPOFOL 200 MG/20 ML AMP IV ONE (11:41)
[2017-06-14] MEDS ORDERED: SODIUM CHLORID 0.9% 500 ML BAG IV ONE (11:41)
[2017-06-14] MEDS ORDERED: METOPROLOL TARTRATE 25 MG TAB PO PRN (12:45)
[2017-06-14] MEDS ORDERED: INSULIN HUMAN REGULAR 1,000 UNITS/10 ML VIAL SQ PRN (12:45)
[2017-06-14] MEDS ORDERED: CHLORHEXIDINE GLUCONATE 2 % 1 PACK (2 CLOTHS) TOPICAL PRN (12:45)
[2017-06-14] MEDS ORDERED: SODIUM CHLORID 0.9% 500 ML IV PRN (12:45)
[2017-06-14] MEDS ORDERED: LACTATED RINGER'S 1000 ML IV PRN (12:45)
[2017-06-14] MEDS ORDERED: POVIDONE IODINE 5% (ANTISEPSIS KIT) 4 APPLICATIONS EACH NARE PRN (12:45)
[2017-06-14 12:53] VITALS: BP 126/68; PULSE 73; RESP 17; TEMP 97.6; O2SAT 98
[2017-06-14] MEDS ORDERED: HUMI40KI SQ (12:59)
[2017-06-14] MEDS ORDERED: SODIUM CHLORID 0.9% 500 ML INJ 500 ML IV SCH (13:00)
[2017-06-14 13:10] LABS: AUTOMATED NEUTROPHIL # 5.7 TH/MM3 (1.8-7.7); BASOPHIL % 0.4 % (0.0-2.0); EOSINOPHIL % 0.5 % (0.0-4.0); HEMATOCRIT 43.2 % (39.0-51.0); HEMO FLAGS DIFF FINAL; LYMPH % 17.7 % (9.0-44.0); LYMPHOCYTE # 1.4 TH/MM3 (1.0-4.8); MEAN CELL VOLUME 87.6 FL (80.0-100.0); MEAN CORPUSCULAR HEMOGLOBIN 31.4 PG (27.0-34.0); MEAN CORPUSCULAR HGB CONC 35.8 % (32.0-36.0); MONO % 7.9 % (0.0-8.0); NEUT % 73.5 % (16.0-70.0); PLATELET COUNT 170 TH/MM3 (150-450); RED BLOOD COUNT 4.93 MIL/MM3 (4.50-5.90); RED CELL DISTRIBUTION WIDTH 12.9 % (11.6-17.2); WHITE BLOOD COUNT 7.8 TH/MM3 (4.0-11.0)
[2017-06-14 13:20] LABS: APTT (PATIENT) 28.5 SEC (24.3-30.1); PROTHROMBIN TIME - PATIENT 11.5 SEC (9.8-11.6)
[2017-06-14 14:56] LABS: BICARBONATE 27.4 MEQ/L (21.0-32.0); POTASSIUM 3.7 MEQ/L (3.5-5.1)
[2017-06-14] MEDS ORDERED: ISOPROTERENOL HCL 1 MG/5 ML AMP ONE (14:58)
[2017-06-14] MEDS ORDERED: HEPARIN-NS/PF INJ 1,000 ML ONE (15:08)
[2017-06-14] MEDS ORDERED: PROPOFOL 200 MG/20 ML AMP ONE ×3 (17:27→18:20)
[2017-06-14] MEDS ORDERED: HEPARIN SODIUM - IV 10,000 UNITS/10 ML VIAL ONE (18:56)
[2017-06-14] MEDS ORDERED: PROTAMINE SULFATE 50 MG/5 ML VIAL ONE (18:56)
--- NOTE | 2017-06-14 20:00 | CATHPROC ---
[facility] Report Study Information Study Number Admission Scheduled Start Study Start [id number] Jun 14 2017 11:40AM 06/14/2017 Jun 14 2017 2:52PM [place] [facility] Electrophysiology Study Admit Source Facility Department Other [facility] Gauge Operator Physician and Clinical Staff Initial Nany Mckinney Sawdust Machine Operator Rubi Dacosta,RT(R) TECH2 Sawdust Machine Operator Cayla Roper,PAID INTERN TECH2 Other Anesthesia, COLOR SEPARATION PHOTOGRAPHER Recorder Layne Hatch,RN Sapnaub Troy Khan,RT(R) Procedures Performed Procedure Location (Site) Vessel Name Ablation Procedure Cardioversion RF Ablation RF Ablation LT. ATRIUM LT. [facility] Equipment Time Sustainability Coach Description Size Mfg Part Number Used/Scraped BIOSENSE REIS CATHETER, DEFLECTABLE, 1MM, [id number] 15:01 FR 6 Used INC. D TYPE HEX *[id number] BIOSENSE REIS CATHETER, DEFLECTABLE, 1MM, [id number] 15:04 FR 7 Used INC. D TYPE OCTA *[id number] [employer]/ EP 19:22 CATHETER, FR7 BLAZER II FR7 [id number] *[id number] Used PACER [employer]/ EP CATHETER, FR7 BLAZER II LARGE [id number] 19:07 FR7 Used PACER CURVE *[id number] [employer]/ EP CATHETER, FR7 BLAZER II LARGE [id number] 18:18 FR7 Used PACER CURVE *[id number] 15:00 [employer] LEADWIRE, DEFIBRILLATION PAD 2001M-PC Used [id number] 15:00 [employer] INDUSTRIES PACK, CCL CUSTOM * Used *[id number] 15:00 [employer] PACER EARLY, LIMB * 2530 *[id number] Used [id number] 15:[address] [facility] MEDICAL SHEATH, FR4.5 PRELUDE 11CM FR 4.5 Used 035ACT PROBE COVER, STERILE [id number] 15:03 [employer] * Used ULTRASOUND W/ GEL *[id number] 15:01 NAMIC TUBING, HIGH PRESSURE 48" 48" Used *[id number] 15:00 [employer] BLANKET,WARM AIR CCL * Used *[id number] CATHETER, DECAPOLAR CSL [id number] 16:01 [facility] FR 6 Used RESPONSE *[id number] 15:04 [facility] [employer] CATHETER, JSN, QUAD FR 5 Used *[id number] 15:00 [facility] [employer] ELECTRODE KIT, [place] X SURFACE * [id number] [facility] [employer] SHEATH, EPS, FR7 FAST CATH FR [address] [id number] Used 15:03 [employer] SHEATH, EPS, FR7 FAST CATH FR 7 [id number] Used 15:03 [facility] [employer] SHEATH, EPS, FR7 FAST CATH FR 7 [id number] Used [id number] 15:03 [facility] [employer] SHEATH, EPS, FR8 FAST CATH FR 8 Used *[id number] 18:56 [facility] [employer] SHEATH, EPS, FR8 FAST CATH FR 8 Used *[id number] [facility] PAD, ELECTROSURGICAL 15:00 * [id number] *[id number] Used SURGICAL GROUNDING (BLUE) History: Allergies Allergy Reaction No Known Allergies Labs Hgb (g/dl) Hct (%) RBC (MIL/MM3) WBC (l/cumm) Platelets (thousands) 11.60-17.00 35.00-51.00 4.00-5.90 4.00-11.00 150.00-450.00 15.0 43 4.9 7.8 170 Glucose (mg/dl) BUN (mg/dl) Creatinine (mg/dl) BUN:Creatinine (1:x) 74.00-106.00 7.00-18.00 0.50-1.30 10.00-20.00 86 14 0.9 15.6 Na (meq/l) K (meq/l) 136.00-145.00 3.50-5.10 139 3.7 INR (PTT:PT) 0.90-1.10 1 Medication Medication Total Dose (Bolus/Oral) Medication Total Dosage/Unit 1% XYLOCAINE 40 mL HEPARIN 6000 units PROTAMINE 40 mg Medications (Bolus/Oral) Medication Time Given Dosage/Unit Administered By Reason 1% XYLOCAINE 06/14/2017 3:34:21 PM 20 mL Nany Shankar 20 mL 1% XYLOCAINE given in lab by Nany Shankar in Right neck via Subcutaneous. 1% XYLOCAINE 06/14/2017 3:42:36 PM 20 mL Nany Shankar 20 mL 1% XYLOCAINE given in lab by Nany Shankar in Right Groin via Subcutaneous. HEPARIN 06/14/2017 6:57:12 PM 6000 units Anesthesia, COLOR SEPARATION PHOTOGRAPHER As per physicians v erbal order 6000 units HEPARIN given in lab by Anesthesia, COLOR SEPARATION PHOTOGRAPHER via Peripheral IV. Ordered by Nany Shankar. Re ason: As per physicians verbal order. PROTAMINE 06/14/2017 7:45:38 PM 40 mg Anesthesia, COLOR SEPARATION PHOTOGRAPHER As per physicians ve rbal order 40 mg PROTAMINE given in lab by Anesthesia, COLOR SEPARATION PHOTOGRAPHER via Peripheral IV. Ordered by Nany Shankar. Reaso n: As per physicians verbal order. Medication (Drip) Medication Time Given Dosage/Unit Concentration/Unit Diluent (ml) Solution ISUPREL 06/14/2017 5:29:25 PM 2 mcg/min 1 mg 250 NaCl .9 2 mcg/min ISUPREL given in lab by Anesthesia, COLOR SEPARATION PHOTOGRAPHER in Right Antecubital via Peripheral IV. Pump/Drip Flow = 30 ml/hr using NaCl .9 with a concentration of 1 mg in 250 ml. Ordered by Nany Shankar. Reason: As per physicians verbal order. Initial Case Assessment Cardiovascular HR Rhythm NIBP Chest Pain 82 sr 124/66 0 Edema Present Skin color Skin None Normal Warm Dry Circulatory - Right Pulses Dorsalis Pedis 1 Scale (0,1,2,3,4,d) Circulatory - Left Pulses Dorsalis Pedis 1 Scale (0,1,2,3,4,d) Circulatory - Lower Extremities Color Lower Right Color Lower Left Normal Normal Neurological State Oriented to time-place- Alert Moves all extremities person Respiration - General Respiration Rate SpO2 (%) (B/min) 18 100 Final Case Assessment Cardiovascular HR Rhythm NIBP Chest Pain 98 sr 105/57 0 Edema Present Skin color Skin None Normal Warm Dry Circulatory - Right Pulses Dorsalis Pedis 1 Scale (0,1,2,3,4,d) Circulatory - Left Pulses Dorsalis Pedis 1 Scale (0,1,2,3,4,d) Circulatory - Lower Extremities Color Lower Right Color Lower Left Normal Normal Neurological State Lethargic Moves all extremities Respiration - General Respiration Rate SpO2 (%) O2 (lpm) (B/min) 14 100 6 Chronological Log Time Study Chronological Log 14:30:15 Patient arrived via Bed. 14:30:19 Patient Name, D.O.B, / Armband Verified By R.N. 14:30:22 Consent signed by the physician and the patient and verified by the Narrow Gauge Operator staff. 14:30:24 Pre-op and post- op instructions given; patient acknowledges understanding of instructions. 14:32:28 Verbal Stimulation=2 Physical Stimulation=2 Airway=2 Respiration=2 TOTAL=8. (0=absent, 1=li mited, 2=present) 14:32:32 Patient has been NPO for More than 6Hrs. 14:32:35 Skin Breakdown- 14:32:38 Patient Warmer Placed on the Table. 14:32:38 A # 20 IV was noted in the Antecubital (left). Grade = 0 0.9ns kvo 14:32:40 A # 20 IV was noted in the Antecubital (right). Grade = 0 0.9ns kvo 14:32:41 Disposable Defibrillator Pads Placed On Patient. 14:32:46 Jn Prominences Protected 14:32:54 History and physical on the chart or being dictated. Assessment: Initial Case, HR=82 BPM, Rhythm=sr, MCHQ=771/66 mmhg, Chest Pain=0, Edema=None, Col or=Normal, Skin = Warm, Dry Right Pulses: Diego Ped=1 Left Pulses: Diego Ped=1 14:50:59 Lower Right Extremities: Color=Normal Lower Left Extremities: Color=Normal Neurological: State=Alert, Ox3, MEJIA Respiration: Resp=18 B/min, JwN7=804 % 14:53:44 Table restraints applied according to hospital policy 14:53:52 Anesthesia at bedside. Assumes care of patient. José Manuel 15:10:44 Reference ECG taken 15:10:57 Bilateral groins prepped with 2% chlorhexidine, and draped after a 3 minute waiting time. 15:12:02 [facility] rep present 15:21:03 MD paged 15:30:48 MD arrived. Time Out. Correct patient, procedure, procedure equipment, site and side verified with physicia n present. Time 15:34:00 concurred by MD, individual staff and COLOR SEPARATION PHOTOGRAPHER. Time Out #2 - Consents verified, patient in correct position, all results are labled and displa yed, safety precautions 15:34:10 taken, antibiotics administered. Time out concurred by MD, individual staff and COLOR SEPARATION PHOTOGRAPHER in procedu re 15:34:20 Case Start 15:34:21 20 mL 1% XYLOCAINE given in lab by Nany Shankar in Right neck via Subcutaneous. 15:37:25 Vascular access was obtained in the Jugular Vein (right). A SHEATH, EPS, FR7 FAST CATH FR 7 was advanced into the Jugular Vein (right) using the Modified Seldinger 15:37:37 technique. A CATHETER, DECAPOLAR CSL RESPONSE FR 6 was advanced vis Jugular Vein (right) and placed in the CS. Placement 15:39:27 was visually confirmed under fluoroscopy. 15:42:36 20 mL 1% XYLOCAINE given in lab by Nany Shankar in Right Groin via Subcutaneous. 15:43:55 Vascular access was obtained in the Fem Vein (right). 15:44:39 Vascular access was obtained in the Fem Vein (right). 15:44:45 Vascular access was obtained in the Fem Vein (right). 15:46:00 A SHEATH, EPS, FR7 FAST CATH FR 7 was advanced into the Fem Vein (right) using the Modified Seldinger technique. 15:46:23 A SHEATH, EPS, FR7 FAST CATH FR 7 was advanced into the Fem Vein (right) using the Modified Seldinger technique. 15:46:39 A SHEATH, EPS, FR8 FAST CATH FR 8 was advanced into the Fem Vein (right) using the Modified Seldinger technique. 15:46:58 Vascular access was obtained in the Fem Art (right). 15:47:08 A SHEATH, FR4.5 PRELUDE 11CM FR 4.5 was advanced into the Fem Art (right) using the Modifie d Seldinger technique. A CATHETER, JSN, QUAD FR 5 was advanced vis Fem Vein (right) and placed in the RVA. Placement w as visually 15:49:40 confirmed under fluoroscopy. A CATHETER, DEFLECTABLE, 1MM, D TYPE HEX FR 6 was advanced vis Fem Vein (right) and placed in t he LRA. 15:50:33 Placement was visually confirmed under fluoroscopy. A CATHETER, DEFLECTABLE, 1MM, D TYPE OCTA FR 7 was advanced vis Fem Vein (right) and placed in the HIS. 15:52:05 Placement was visually confirmed under fluoroscopy. 15:53:20 EPS in progress. 16:36:45 EPS continues. 16:43:12 ECG rhythm of AF noted. Patient cardioverted at 200 joules. Success synch 17:00:22 EPS continues. 2 mcg/min ISUPREL given in lab by Anesthesia, COLOR SEPARATION PHOTOGRAPHER in Right Antecubital via Peripheral IV. Pump /Drip Flow = 30 ml/hr 17:29:25 using NaCl .9 with a concentration of 1 mg in 250 ml. Ordered by Nany Shankar. Reason: A s per physicians verbal order. 17:42:15 EP Study continues. Catheters readjusted by Dr. Shankar. 18:13:05 Isuprel off. 18:14:49 Hexa quad removed. 18:16:07 EPS complete A CATHETER, FR7 BLAZER II LARGE CURVE FR7 was advanced vis Fem Vein (right) and placed in the L RA. Placement 18:16:20 was visually confirmed under fluoroscopy. LRA 18:21:55 RF Ablation of the LRA close to CS os with a CATHETER, FR7 BLAZER II LARGE CURVE FR7. 18:42:36 ECG rhythm of AF noted. Patient cardioverted at 30 joules. Success synchronized A SHEATH, EPS, FR8 FAST CATH FR 8 was exchanged in the Fem Art (left). This was necessary in or rosi for catheter 18:55:29 support. 6000 units HEPARIN given in lab by Anesthesia, COLOR SEPARATION PHOTOGRAPHER via Peripheral IV. Ordered by Jose Shankar ar. Reason: As per 18:57:12 physicians verbal order. 19:01:57 Activated Clotting Time Drawn 19:07:26 ACT (Normal Range 90-180) = 302 19:07:58 Ablation catheter removed without difficulty and exchanged A CATHETER, FR7 BLAZER II LARGE CURVE FR7 was advanced vis Fem Art (left) and placed in the LA. Placement was 19:08:37 visually confirmed under fluoroscopy. 19:19:04 MD unable to position ablation cathater. Removed and exchanged. A CATHETER, FR7 BLAZER II FR7 was advanced vis Fem Art (right) and placed in the LA. Placement was visually 19:19:35 confirmed under fluoroscopy. std curve/distal A CATHETER, FR7 BLAZER II FR7 was removed from Left Fem Artery and advanced vis Fem Vein (right ) and placed in 19:24:19 the LRA. Placement was visually confirmed under fluoroscopy. 19:24:42 RF Ablation of the RT. ATRIUM with a eps. 19:41:19 ABL Catheter was removed 19:43:44 Catheters removed without difficulty. 19:44:17 Sheath(s) left in place, sutured, 0.9ns kvo connected and will be removed in Holding Area. 19:44:43 Ablation procedure performed: SVT. 19:45:06 EP Procedure was performed. 40 mg PROTAMINE given in lab by Anesthesia, COLOR SEPARATION PHOTOGRAPHER via Peripheral IV. Ordered by Nany Shankar. Reason: As per 19:45:38 physicians verbal order. 19:50:23 CICU called. Spoke to Jeri 19:51:17 Bedside Report will be given. Assessment: Final Case, HR=98 BPM, Rhythm=sr, OVDN=755/57 mmhg, Chest Pain=0, Edema=None, Color =Normal, Skin = Warm, Dry Right Pulses: Diego Ped=1 Left Pulses: Diego Ped=1 19:51:37 Lower Right Extremities: Color=Normal Lower Left Extremities: Color=Normal Neurological: State=Lethargic, MEJIA Respiration: Resp=14 B/min, PgW2=584 %, O2=6 lpm 19:52:23 Activated Clotting Time Drawn 19:56:43 ACT (Normal Range 90-180) = 116 19:59:12 Case End 19:59:40 Sterile dressing applied to site 19:59:41 No case complications noted. 19:59:42 Cine recording checked. 19:59:48 Defibrillator and ground pads removed. Skin intact. 20:01:48 PACU called. Spoke to Michael 20:01:57 Bedside Report will be given. 20:05:50 Patient moved to [facility] End Study - Contrast Media Used In Study Contrast Total Opened (mL) Total Used (mL) Total Wasted (mL) Unspecified 0 0 0 End Study - Maximum Contrast Load Max Contrast Load (mL) 357.3 End Study - Radiation Exposure Fluoro Time (minutes) 47.0 End Study - Patient Disposition Complications Transferred To Interventional Outcome No Telemetry Bed successful
[2017-06-14] MEDS ORDERED: DO NOT ADM ANY ANTICOAGULANT DRUGS PRN (20:10)
[2017-06-14] MEDS ORDERED: *MEPERIDINE 25 MG INJ VIAL PERIprocedural Use ONLY ONE (20:17)
[2017-06-14] MEDS ORDERED: *morphine SULFATE 8 MG/ML PERIprocedure ONLY ONE (20:22)
[2017-06-14 22:00] VITALS: PULSE 82
[2017-06-14 23:00] VITALS: BP 105/71; PULSE 78; PULSE 93; RESP 16; TEMP 98.1; O2SAT 97
[2017-06-15] VITALS (10 sets, daily range): BP systolic 111–114; BP diastolic 63–64; PULSE 64–94; RESP 16–18; TEMP 97.4–98.1; O2SAT 94–99
--- NOTE | 2017-06-15 09:39 | MR ---
cc: RADHA ROBB DATE: 06/14/2017 INDICATION Xhqty-Firqxrbqn-Rltfl syndrome, palpitations, tachycardia. PROCEDURE PERFORMED 1. Comprehensive electrophysiology study with right atrial and right ventricular pacing and sensing. 2. Coronary sinus cannulation with coronary sinus pacing and sensing. 3. IV isoproterenol administration for tachycardia induction. 4. Supraventricular tachycardia ablation. 5. 3-D mapping. ACCESS SITE Right internal jugular vein, right femoral artery, right femoral vein. EQUIPMENT USED Quadripolar catheter, octapolar catheter, hexapolar catheter, decapolar catheter in coronary sinus, Blazer II ablation catheters. MEDICATIONS Isoproterenol IV, heparin 6000 units, protamine 50 mg. SEDATION Sedation administered by Anesthesia. COMPLICATIONS None. ESTIMATED BLOOD LOSS Less than 10 cc. METHOD OF HEMOSTASIS Manual compression RESULTS 1. Baseline EKG: Normal sinus rhythm, WPW. 2. Baseline intervals (milliseconds): Cycle length 700 milliseconds, TX 136, QRS 100, QT 354, QTC 423, AH 92, HV 58. 3. Right atrial programmed electrical stimulation: Right atrial programmed stimulation was performed at baseline and on isoproterenol. Atrial fibrillation was induced on two occasions and terminated with 200 joules synchronized shock. There was no conduction of accessory pathway during atrial fibrillation. Antegrade refractory period of accessory pathway 700/490/520. 4. Coronary sinus stimulation: Coronary sinus stimulation was performed on isoproterenol. No arrhythmias were induced. 5. Right ventricular programmed extrastimulation: Right ventricular stimulation was performed at baseline and on isoproterenol. Atrial fibrillation was induced. Orthodromic reciprocating tachycardia with cycle length of 290 milliseconds and right bundle branch block was induced with right ventricular pacing. This converted to orthodromic reciprocating tachycardia with narrow complex. Tachycardia was induced on isoproterenol 2 mcg per minute. Retrograde Wenckebach block was 320 milliseconds. There was intermittent conduction of the accessory pathway. 6. Atrial fibrillation. There was no preexcitation during atrial fibrillation. Heart rate 120 beats per minute at baseline and 155 beats per minute on isoproterenol. Atrial fibrillation was terminated on two occasions with a 200 joules biphasic shock. 7. Orthodromic reciprocating tachycardia: Orthodromic reciprocating tachycardia was induced with narrow complex and also right bundle branch block, cycle length 290 milliseconds, with right ventricular decremental pacing. This arrhythmia spontaneously terminated. 8. Radiofrequency ablation: The accessory pathway was mapped to the low septum anterior to the os of the coronary sinus. Radiofrequency ablation was administered to the site with earliest ventricular activation during sinus rhythm and earliest atrial activation during the right ventricular pacing. This resulted in temporary pathway loss of conduction. The pathway function though recurred on multiple occasions after multiple jo. The left ventricle was accessed and mitral annulus toward the septum was mapped. The earliest activation was later than on the right side and at this time we returned back to the right atrium septal region. Additional jo were placed anterior to the os of the coronary sinus in the low septal region anteriorly to the previous ablation. This resulted in termination of the pathway function both antegrade and retrograde. There was no evidence of accessory pathway function at the end of the study. 9. Post ablation study: A post ablation study was performed. There was no antegrade function of the pathway. Retrograde Wenckebach was 390 milliseconds and there was no conduction retrogradely of the pathway either. No arrhythmias were induced. DIAGNOSIS 1. 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 2. 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 3. Successful ablation of right low septal accessory pathway. DISPOSITION Mr. Collazo will be monitored after his procedure overnight. He will be discharged home tomorrow if stable. I will see him back for follow-up in our office after discharge. MD BYRON Carbajal/DANNI /7:59 PM /9:13 AM MTDAnnie
--- NOTE | 2017-06-15 14:31 | EKG ---
Date Performed: 06/14/2017 Time Performed: 12:54:00 PTAGE: 21 years EKG: Sinus rhythm with PVC(s). Incomplete RBBB Anterolateral ST elevation - possible early repolarization Septal ST-T changes are nonspecific Borderline ECG PREVIOUS TRACING : 02/12/2017 20.33 Compared to prior tracing no significant change DOCTOR: Sharath Michaud Interpretating Date/Time 06/15/2017 14:23:44
--- NOTE | 2017-06-15 14:44 | PD.CARD.PN ---
Subjective Subjective Remarks No CP or SOB, tele with no arrhythmias Objective Vital Signs / I&O Vital Signs Date Time Temp Pulse Resp B/P (MAP) Pulse Ox O2 Delivery O2 Flow Rate FiO2 06/15/17 09:00 74 06/15/17 08:00 71 06/15/17 07:00 70 06/15/17 07:00 97.4 86 16 111/64 (80) 94 06/15/17 06:05 64 06/15/17 05:22 86 06/15/17 04:00 70 06/15/17 03:00 98.1 94 18 114/63 (80) 99 06/15/17 03:00 75 06/15/17 02:13 82 06/15/17 01:00 87 06/15/17 00:00 68 06/14/17 23:00 98.1 93 16 105/71 (82) 97 06/14/17 23:00 78 06/14/17 22:00 82 06/14/17 21:32 97.6 77 16 108/59 (75) 94 Room Air 06/14/17 21:25 88 15 108/60 (76) 96 Room Air 06/14/17 21:20 86 16 110/61 (77) 95 Room Air 06/14/17 21:15 88 16 110/61 (77) 96 Room Air 06/14/17 21:10 88 16 108/60 (76) 96 Room Air 06/14/17 21:05 87 16 110/63 (79) 97 Room Air 06/14/17 21:00 89 14 108/60 (76) 97 Room Air 06/14/17 20:55 92 14 109/57 (74) 96 Room Air 06/14/17 20:50 90 16 106/59 (75) 96 Room Air 06/14/17 20:45 91 16 111/59 (76) 96 Room Air 06/14/17 20:40 82 16 113/65 (81) 100 Nasal Cannula 2 06/14/17 20:30 97 Room Air 06/14/17 20:30 88 16 102/62 (75) 100 Nasal Cannula 3 06/14/17 20:20 101/56 (71) 100 Nasal Cannula 3 06/14/17 20:14 98.1 90 16 108/62 (77) 100 Nasal Cannula 4 I/O 11/06/14/17 06/14/17 06/15/17 06/15/17 06/15/17 07:00 15:00 23:00 07:00 15:00 23:00 Intake Total 600 ml Output Total 800 ml Balance -200 ml Intake Oral 600 ml Output Urine Total 800 ml # Voids 1 Physical Exam GENERAL: In NAD. SKIN: Warm and dry. HEAD: Normocephalic. EYES: No scleral icterus. No injection or drainage. NECK: Supple, trachea midline. No JVD or lymphadenopathy. CARDIOVASCULAR: Regular rate and rhythm without murmurs, gallops, or rubs. RESPIRATORY: Breath sounds equal bilaterally. No accessory muscle use. GASTROINTESTINAL: Abdomen soft, non-tender, nondistended. MUSCULOSKELETAL: No cyanosis, or edema. Groin stable. Assessment and Plan Problem List: (1) SVT (supraventricular tachycardia) ICD Codes: I47.1 - Supraventricular tachycardia (2) WPW (Oosnh-Enwxozkhy-Qfatd syndrome) ICD Codes: I45.6 - Pre-excitation syndrome (3) Syncope ICD Codes: R55 - Syncope and collapse Status: Acute Assessment and Plan No arrhythmias. Groin stable. DC home. Baby ASA for the next 6 weeks. Will schedule outpt f/u with me after discharge. Nany Shankar MD Jun 15, 2017 14:44
== END 2017-06-15 10:58 | disposition home or self-care (01) ==
LOC: HDOC 11:40 → HDIC 11:41 → HCIS 22:17 → HDOC 06-15 10:58
PROVIDERS: ATTEND Internal Medicine Interventional Cardiology
DX: I47.1 Supraventricular tachycardia (principal); I45.6 Pre-excitation syndrome
CPT/HCPCS: 00537; 80048; 85002; 85025; 85610; 85730; 92960; 93005; 93623; 93653; C1730; C1732; C2630; J1644; J2175; J2270; J2720; J7040

== ENCOUNTER 2017-06-28 12:37 | Emergency (ER) | payer BC ==
[~2017-06-28 12:37] MED LIST changes: -ADAL1INJ SQ; +HUMI40KI SQ
[2017-06-28 12:40] VITALS: BP 124/65; PULSE 89; RESP 16; TEMP 98.7; O2SAT 99
[2017-06-28 13:33] LABS: AUTOMATED NEUTROPHIL # 3.9 TH/MM3 (1.8-7.7); BASOPHIL % 0.2 % (0.0-2.0); EOSINOPHIL # 0.1 TH/MM3 (0-0.4); EOSINOPHIL % 1.1 % (0.0-4.0); HEMATOCRIT 44.7 % (39.0-51.0); HEMO FLAGS DIFF FINAL; LYMPH % 25.8 % (9.0-44.0); LYMPHOCYTE # 1.6 TH/MM3 (1.0-4.8); MEAN CELL VOLUME 87.8 FL (80.0-100.0); MEAN CORPUSCULAR HEMOGLOBIN 30.6 PG (27.0-34.0); MEAN CORPUSCULAR HGB CONC 34.9 % (32.0-36.0); MONO % 9.7 % (0.0-8.0); NEUT % 63.2 % (16.0-70.0); PLATELET COUNT 227 TH/MM3 (150-450); RED BLOOD COUNT 5.09 MIL/MM3 (4.50-5.90); RED CELL DISTRIBUTION WIDTH 12.6 % (11.6-17.2); WHITE BLOOD COUNT 6.2 TH/MM3 (4.0-11.0)
[2017-06-28 13:37] LABS: APTT (PATIENT) 28.2 SEC (24.3-30.1); INTERNATIONAL NORMALIZED RATIO 1.1 RATIO; PROTHROMBIN TIME - PATIENT 11.8 SEC (9.8-11.6)
[2017-06-28 13:52] LABS: ANION GAP 7 MEQ/L (5-15); BICARBONATE 27.2 MEQ/L (21.0-32.0); BLOOD UREA NITROGEN 13 MG/DL (7-18); CHLORIDE 105 MEQ/L (98-107); GLOMERULAR FILTRATION RATE 119 ML/MIN (>89); MAGNESIUM 2.1 MG/DL (1.5-2.5); POTASSIUM 4.1 MEQ/L (3.5-5.1); SODIUM (NA) 139 MEQ/L (136-145)
[2017-06-28 13:56] LABS: CREATINE KINASE 162 U/L (39-308)
[2017-06-28 14:08] LABS: CKMB 0.9 NG/ML (0.5-3.6)
--- NOTE | 2017-06-28 14:18 | RADRPT ---
EXAM DATE/TIME: 06/28/2017 13:27 [facility] COMPARISON: No previous studies available for comparison. INDICATIONS : Left lateral chest pains, ablation 2 weeks ago. MEDICAL HISTORY : Myocardial infarction. Irregular heart beat. SURGICAL HISTORY : Ablation ENCOUNTER: Initial ACUITY: 1 day PAIN SCORE: 8/10 LOCATION: Left chest FINDINGS: PA and lateral views of the chest demonstrate the lungs to be symmetrically aerated without evidence of mass, infiltrate or effusion. The cardiomediastinal contours are unremarkable. Osseous structure s are intact. CONCLUSION: No acute disease. Manan Huang MD FACR on June 28, 2017 at 14:16 Board Certified Radiologist. This report was verified electronically.
[2017-06-28 15:30] VITALS: BP 109/74; PULSE 70; RESP 17; O2SAT 99
--- NOTE | 2017-06-28 16:53 | PD ---
HPI Chief Complaint: Cardiac Complaint Time Seen by Provider: 14:46 Travel History International Travel<30 days: No Contact w/Intl Traveler<30days: No Traveled to known affect area: No History of Present Illness HPI This patient complains of palpitations and sensation of racing heartbeat. Duration is one day. When he woke up this morning it was present. Spells are very brief. No presyncopal symptoms. Patient had a ablation 2 weeks ago for WPW and has had SVT in the past. Sees Dr. manuel. Symptoms severity is moderate. No alleviating factors. No exacerbating factors. He does drink at least a sixpack of [employer] daily PFSH Past Medical History Autoimmune Disease: Yes (Chron's ) Anxiety: Yes Cancer: No Cardiovascular Problems: Yes (WPW) Chest Pain: No Diabetes: No Diminished Hearing: No Endocrine: No Gastrointestinal Disorders: Yes (CROHN'S DISEASE) Glaucoma: No Genitourinary: No Hepatitis: No Hiatal Hernia: No Hypertension: No Immune Disorder: No Musculoskeletal: No Neurologic: No Psychiatric: Yes Reproductive: No Respiratory: No Integumentary: No Immunizations Current: Yes Thyroid Disease: No Past Surgical History Cardiac Surgery: Yes (ablation for mccurdy parkinson white syndrome ) Tonsillectomy: Yes Tympanostomy Tube: Yes Social History Alcohol Use: No Tobacco Use: No Substance Use: No Allergies-Medications (Allergen,Severity, Reaction): Coded Allergies: No Known Allergies (Verified Adverse Reaction, Unknown, 06/28/17) Reported Meds & Prescriptions Reported Meds & Active Scripts Active Reported Humira 2-Pack Inj (Adalimumab 2-Pack Inj) 40 Mg/0.8 Ml Syr 40 Mg SQ Q14D Review of Systems General / Constitutional: No: Fever Eyes: No: Visual changes HENT: No: Headaches Cardiovascular: Positive: Chest Pain or Discomfort, Palpitations, Tachycardia Respiratory: No: Shortness of Breath Gastrointestinal: No: Abdominal Pain Genitourinary: No: Dysuria Musculoskeletal: No: Pain Skin: No Rash Neurologic: No: Weakness Psychiatric: No: Depression Endocrine: No: Polydipsia Hematologic/Lymphatic: No: Easy Bruising Physical Exam Narrative GENERAL: Well-nourished, well-developed patient in no apparent distress. SKIN: Focused skin assessment reveals no rash and nodules. Skin is Warm and dry. HEAD: Atraumatic. Normocephalic. EYES: Pupils equal and round. No scleral icterus. No injection or drainage. ENT: No nasal bleeding or discharge. Mucous membranes pink and moist. NECK: Trachea midline. No JVD. CARDIOVASCULAR: Regular rate and rhythm. No murmur appreciated. RESPIRATORY: No accessory muscle use. Clear to auscultation. Breath sounds equal bilaterally. GASTROINTESTINAL: Abdomen soft, non-tender, nondistended. Hepatic and splenic margins not palpable. MUSCULOSKELETAL: No obvious deformities. No clubbing. No cyanosis. No edema. NEUROLOGICAL: Awake and alert. No obvious cranial nerve deficits. Motor grossly within normal limits. Normal speech. PSYCHIATRIC: Appropriate mood and affect; insight and judgment normal. Data Data Last Documented VS Vital Signs Date Time Temp Pulse Resp B/P (MAP) Pulse Ox O2 Delivery O2 Flow Rate FiO2 06/28/17 15:30 70 17 99 06/28/17 15:30 109/74 (86) 06/28/17 12:40 98.7 Orders Orders Electrocardiogram (06/28/17 12:45) Basic Metabolic Panel (Bmp) (06/28/17 12:45) Ckmb (Isoenzyme) Profile (06/28/17 12:45) Complete Blood Count With Diff (06/28/17 12:45) Magnesium (Mg) (06/28/17 12:45) Prothrombin Time / Inr (Pt) (06/28/17 12:45) Act Partial Throm Time (Ptt) (06/28/17 12:45) Troponin I (06/28/17 12:45) Chest, Pa & Lat (06/28/17 12:45) CKMB (06/28/17 13:02) CKMB% (06/28/17 13:02) Labs Laboratory Tests Test 06/28/17 13:02 White Blood Count 6.2 TH/MM3 Red Blood Count 5.09 MIL/MM3 Hemoglobin 15.6 GM/DL Hematocrit 44.7 % Mean Corpuscular Volume 87.8 FL Mean Corpuscular Hemoglobin 30.6 PG Mean Corpuscular Hemoglobin Concent 34.9 % Red Cell Distribution Width 12.6 % Platelet Count 227 TH/MM3 Mean Platelet Volume 8.2 FL Neutrophils (%) (Auto) 63.2 % Lymphocytes (%) (Auto) 25.8 % Monocytes (%) (Auto) 9.7 % Eosinophils (%) (Auto) 1.1 % Basophils (%) (Auto) 0.2 % Neutrophils # (Auto) 3.9 TH/MM3 Lymphocytes # (Auto) 1.6 TH/MM3 Monocytes # (Auto) 0.6 TH/MM3 Eosinophils # (Auto) 0.1 TH/MM3 Basophils # (Auto) 0.0 TH/MM3 CBC Comment DIFF FINAL Differential Comment Prothrombin Time 11.8 SEC Prothromb Time International Ratio 1.1 RATIO Activated Partial Thromboplast Time 28.2 SEC Blood Urea Nitrogen 13 MG/DL Creatinine 0.81 MG/DL Random Glucose 87 MG/DL Calcium Level 9.2 MG/DL Magnesium Level 2.1 MG/DL Sodium Level 139 MEQ/L Potassium Level 4.1 MEQ/L Chloride Level 105 MEQ/L Carbon Dioxide Level 27.2 MEQ/L Anion Gap 7 MEQ/L Estimat Glomerular Filtration Rate 119 ML/MIN Total Creatine Kinase 162 U/L Creatine Kinase MB 0.9 NG/ML Troponin I LESS THAN 0.02 NG/ML MDM Medical Decision Making Medical Screen Exam Complete: Yes Emergency Medical Condition: Yes Medical Record Reviewed: Yes Differential Diagnosis SVT, A. fib, ventricular tachycardia Narrative Course I have reviewed the patient's electronic medical record. Patient's laboratory workup is normal including cardiac enzymes and metabolic studies and CBC I reviewed the EKG which shows sinus rhythm and no ST elevation On extended cardiac monitoring he has periodic spells of SVT which are very brief, literally 5-10 seconds and resolved. I reviewed this in detail with covering management coordinator Dr. Chavez who recommends just outpatient follow-up with a management coordinator and no change in medication. Diagnosis Primary Impression: SVT (supraventricular tachycardia) Additional Impression: Palpitations Additional Instructions: The patient was advised to follow up with their physician and return if they worsen. Avoid caffeine and other cardiac stimulants Med/Other Pt SpecificInfo: Other Disposition: 01 DISCHARGE HOME Condition: Stable Serge Elmore MD Jun 28, 2017 16:53
--- NOTE | 2017-06-29 16:05 | EKG ---
Date Performed: 06/28/2017 Time Performed: 13:57:14 PTAGE: 21 years EKG: Normal Sinus rhythm Short MI interval INTRAVENTRICULAR CONDUCTION DELAY, can not exclude Xrrag-Rkyqxjsdy-Zqtvj pattern. Inferior T wave suggestive of inferior myocardial infarction. When compared to previous tracing, the intraventricular Conduction delay has improved. INFERIOR MYOCARDIAL INFARCTION ABNORMAL ECG PREVIOUS TRACING : 06/14/2017 12.54 DOCTOR: Emmy Abbott Interpretating Date/Time 06/29/2017 16:04:09
== END 2017-06-28 17:20 | disposition home or self-care (01) ==
LOC: NEPD 12:37
DX: I47.1 Supraventricular tachycardia (principal); R00.2 Palpitations; R07.9 Chest pain, unspecified; K50.90 Crohn's disease, unspecified, without complications; F41.9 Anxiety disorder, unspecified; I25.2 Old myocardial infarction; R94.31 Abnormal electrocardiogram [ECG] [EKG]
CPT/HCPCS: 71020; 80048; 82550; 82552; 83735; 84484; 85025; 85610; 85730; 93005